=== PATIENT | female | born 1980 | race Caucasian/White ===

== ENCOUNTER 2017-07-27 14:01 | Inpatient (IN) | payer OTHER ==
[2017-07-27] MEDS ORDERED: PITOCin/NS 20 UNIT/1000ML DRIP 20,000 MILLIUNITS/1,000 ML BAG IV ONE (14:48)
[2017-07-27] MEDS ORDERED: XYLOCAINE 2% INFILTRATI ONE (14:48)
[2017-07-27] MEDS ORDERED: PHENERGAN PO PRN (15:13)
[2017-07-27] MEDS ORDERED: BENADRYL PO PRN (15:13)
[2017-07-27] MEDS ORDERED: NORCO 5/325 PO PRN (15:13)
[2017-07-27] MEDS ORDERED: MILK OF MAGNESIA PO PRN (15:13)
[2017-07-27] MEDS ORDERED: DULCOLAX PR PRN (15:13)
[2017-07-27] MEDS ORDERED: TUCKS PAD TP PRN (15:13)
[2017-07-27] MEDS ORDERED: LANSINOH TP PRN (15:13)
[2017-07-27] MEDS ORDERED: TYLENOL PO PRN (15:13)
[2017-07-27] MEDS ORDERED: METHERGINE IM PRN (15:13)
[2017-07-27] MEDS ORDERED: ZOFRAN IV PRN (15:13)
[2017-07-27] MEDS ORDERED: PHENERGAN PR PRN (15:13)
--- NOTE | 2017-07-27 15:18 | Procedure Note ---
OB Delivery Note - Vaginal Delivery presentation: vertex Delivery position: OA Intrapartum events: none Delivery induction: none Delivery monitor: external FHT Route of delivery: Delivery placenta: spontaneous Episiotomy: none Delivery laceration: 2nd degree Delivery repair: chromic Anesthesia: local
--- NOTE | 2017-07-27 15:31 | History and Physical Report ---
History of Present Illness Date of examination: 07/27/17 Date of admission: 07/27/17 14:34 Chief complaint: with contractions. History of present illness: Patient is a 36 years old female , EDC 08/05/2017 who is a 38 weeks and 6 days who presented to the labor floor complaining of having contractions since about 5 AM today. She denies any fluid leakage or bleeding. Sheb reported good movement. On admission, her vital signs were stable. Pelvic exam showed the cervix to be dilated to 9 cm/100%/ and 0 station. She was admitted. Past medical history:denies. Past surgical history:denies. Allergies: denies any drug allergies. Social history: denies any smoking, alcohol, or drug abuse. LEGAL RECRUITER history: unremarkable. Obstetric history: vaginal delivery 4 full-term unremarkable. Medications: vitamins. Review of systems: as above. chart reviewed: pending. FHT: 140s-150s, no deceleration. [place]: Contractions Every 2 Minutes. Assessment Single Intrauterine at 38 Weeks and 6 Days in Active Labor. Plan 1. We'll admit to Labor and Delivery. 2. Admitting labs have been sent. 3. Continue Heart Tracing and [place] Monitoring. Start IV ACCESS. 4. F/U labs. Medications and Allergies Active Meds: Active Medications Acetaminophen (Tylenol) 650 mg PO Q4H PRN PRN Reason: Pain MILD(1-3)/Fever >100.5/CABRERA Acetaminophen/Hydrocodone Bitart ([place] 5/325) 2 each PO Q6H PRN PRN Reason: Pain, Moderate (4-6) Bisacodyl (Dulcolax) 10 mg SD BID PRN PRN Reason: Constipation Diphenhydramine HCl (Benadryl) 25 mg PO Q6H PRN PRN Reason: Itching Oxytocin/Sodium Chloride (Pitocin/Ns 20 Unit/1000ml Drip) 20 units in 1,000 mls @ 250 mls/hr IV DIRECT CHRIS Ibuprofen (Motrin) 600 mg PO Q6H CHRIS Magnesium Hydroxide (Milk Of Magnesia) 30 ml PO HS PRN PRN Reason: Constipation Methylergonovine Maleate (Methergine) 0.2 mg IM Q4H PRN PRN Reason: Uterine Bleeding Multi-Ingredient Ointment (Lansinoh) 1 applic TP PRN PRN PRN Reason: Sore Nipples Ondansetron HCl (Zofran) 4 mg IV Q8H PRN PRN Reason: Nausea And Vomiting Promethazine HCl (Phenergan) 25 mg SD Q6H PRN PRN Reason: Nausea And Vomiting Promethazine HCl (Phenergan) 25 mg PO Q6H PRN PRN Reason: Nausea And Vomiting Sodium Chloride (Sodium Chloride Flush Syringe 10 Ml) 10 ml IV PRN NR [place]/Glycerin (Tucks Pad) 1 each TP PRN PRN PRN Reason: Hemorrhoid/cleansing/soothing - Vital Signs Vital signs: Vital Signs Pulse BP 76 137/78 07/27/17 14:58 07/27/17 14:58 Temp Pulse Resp BP Pulse Ox 71 112/74 07/27/17 15:13 07/27/17 15:13 Results All other labs normal.
[2017-07-27] MEDS ORDERED: SODIUM CHLORIDE FLUSH SYRINGE 10 ML IV NR (16:00)
[2017-07-27] MEDS ORDERED: PITOCin/NS 20 UNIT/1000ML DRIP 20 UNITS/1,000 ML BAG IV SCH (16:00)
[2017-07-27] MEDS: MOTRIN PO SCH (23:36)
[2017-07-28 01:50] LABS: Hematocrit 29.9 % (30.3-42.9); Hemoglobin 10.2 gm/dl (10.1-14.3)
[2017-07-28] MEDS: MOTRIN PO SCH ×2 (05:15→12:15)
--- NOTE | 2017-07-28 08:57 | Progress Note ---
Assessment and Plan A: PPD #1 -stable P; Discharge home this afternoon Subjective - Subjective Date of service: 07/28/17 Principal diagnosis: Patient reports: appetite normal [place]: doing well Objective - Vital Signs Latest vital signs: Vital Signs Temp Pulse Resp BP BP 07/28/17 05:15 18 07/28/17 00:00 98.1 F 65 20 97/59 07/27/17 23:36 18 07/27/17 20:00 98.9 F 74 20 101/66 07/27/17 17:05 97.6 F 65 100 H 123/83 07/27/17 16:16 71 116/66 07/27/17 15:43 73 118/76 07/27/17 15:28 72 123/82 07/27/17 15:13 71 112/74 07/27/17 14:58 76 137/78 Intake and Output 07/27/17 07/28/17 07/28/17 22:59 06:59 14:59 Intake Total 720 360 Output Total 100 1300 Balance 620 -940 Intake: Oral 480 360 Intake, Free Water 240 Output: Urine 100 1300 Void 100 1300 Other: Total, Intake Amount 240 240 Total, Output Amount 100 700 Voiding Method Toilet # Voids Void 1 1 Weight 136 lb - Exam Breasts: Present: deferred Cardiovascular: Present: Regular rate Lungs: Present: Clear to auscultation Abdomen: Present: soft Vulva: both: normal Uterus: Present: fundal height below umbilicus Extremities: Present: normal Deep Tendon Reflex Grade: Normal +2 - Labs Labs: Abnormal lab results 07/28/17 Range/Units 01:37 Hct 29.9 L (30.3-42.9) %
--- NOTE | 2017-07-28 08:59 | Discharge Summary ---
Providers - Providers Date of Admission: 07/27/17 14:34 Date of discharge: 07/28/17 Attending physician: SARIAH HUSAIN MD Primary care physician: SARIAH HUSAIN MD Hospitalization Reason for admission: active labor Delivery: Laceration: 2nd degree Other procedures: none complications: none Discharge diagnosis: IUP at term delivered [place] baby: male Condition at discharge: Good Disposition: DC-01 TO HOME OR SELFCARE Plan - Provider Discharge Summary Activity: routine, no sex for 6 weeks, no strenuous exercise Diet: routine Instructions: routine Additional instructions: [] Smoking cessation referral if applicable(refer to patient education folder for contact #) [] Refer to [facility] Booklet Call your doctor immediately for: * Fever > 100.5 * Heavy vaginal bleeding ( >1 pad per hour) * Severe persistent headache * Shortness of breath * Reddened, hot, painful area to leg or breast * Drainage or odor from incision. * Keep incision clean and dry at all times and follow doctor's instructions regarding bathing/showering - Follow up plan Follow up: SARIAH HUSAIN MD [Primary Care Provider] - 6 Weeks
[2017-07-28] MEDS ORDERED: Fluarix Quad 2017-2018(36 MOS+) IM ONE (12:00)
[2017-07-28 17:52] VITALS: BP 100/71
== END 2017-07-28 21:00 | disposition home or self-care (01) | DRG 775 ==
LOC: TRG 14:01 → LD 14:34 → OB 17:02
PROVIDERS: ADMIT Obstetrics & Gynecology; ATTEND Obstetrics & Gynecology
PROC: 10E0XZZ Delivery of Products of Conception, External Approach (ICD-10-PCS; principal; 2017-07-27)
PROC: 0KQM0ZZ Repair Perineum Muscle, Open Approach (ICD-10-PCS; 2017-07-27)
PROC: 3E0234Z Introduction of Serum, Toxoid and Vaccine into Muscle, Percutaneous Approach (ICD-10-PCS; 2017-07-28)
DX: O70.1 Second degree perineal laceration during delivery (principal); Z37.0 Single live birth; Z23 Encounter for immunization; Z3A.38 38 weeks gestation of pregnancy
CPT/HCPCS: 36415; 85014; 85018; 86850; 86900; 86901; 90686; 99211; G0463; J2590